=== PATIENT | male | born 1990 | race African-American/Black ===

== ENCOUNTER 2016-12-30 17:59 | Emergency (ER) | payer OTHER ==
[2016-12-30] MEDS ORDERED: DEXAMETHASONE 10 MG/ML VIAL PO STA (18:31)
[2016-12-30] MEDS ORDERED: DEXAMETHASONE 10 MG/ML VIAL ONE (18:36)
[2016-12-30] MEDS ORDERED: CHERRY SYRUP 10 ML UDC PO ONE (18:36)
[2016-12-30] MEDS ORDERED: CEPHALEXIN 250 MG CAPSULE PO STA (19:27)
[2016-12-30] MEDS ORDERED: CEPHALEXIN 250 MG CAPSULE PO ONE (19:28)
== END 2016-12-30 19:32 | disposition home or self-care (01) ==
DX: J02.0 Streptococcal pharyngitis (principal); R03.0 Elevated blood-pressure reading, without diagnosis of hypertension
CPT/HCPCS: 87070; 87430; 99283; A9270